=== PATIENT | female | born 1970 | race Asian ===

== ENCOUNTER 2019-12-08 23:02 | Emergency (ER) | payer MEDICAID, OTHER ==
[~2019-12-08] VITALS: Ht 162.6 cm; Wt 67.3 kg
[2019-12-08] MEDS ORDERED: IBUP100O27 PO (23:27)
[2019-12-08] MEDS ORDERED: ASPI-556 PO (23:27)
[2019-12-08 23:28] LABS: GLUCOSE,POINT OF CARE 222 MG/DL (70-110)
[2019-12-08] MEDS ORDERED: METF-960 PO (23:29)
[2019-12-08] MEDS ORDERED: OMEP20 PO (23:29)
[2019-12-09 00:58] LABS: BASOPHILS % (AUTO) 0.5 % (0.0-2.0); EOSINOPHILS % (AUTO) 1.1 % (1.0-6.0); HEMATOCRIT 35.6 % (36-46); HEMOGLOBIN 11.9 g/dL (12.0-16.0); LYMPHOCYTES # (AUTO) 1.9 K/uL (1.0-4.8); LYMPHOCYTES % (AUTO) 18.4 % (22.0-44.0); MEAN CORPUSCULAR HEMOGLOBIN 28.6 pg (26.0-34.0); MEAN CORPUSCULAR HGB CONC 33.4 G/dL (31.0-37.0); MEAN CORPUSCULAR VOLUME 86 fL (80-100); MONOCYTES # (AUTO) 0.8 K/uL (0.1-1.0); MONOCYTES % (AUTO) 7.5 % (2.0-9.0); NEUTROPHILS # (AUTO) 7.4 K/uL (1.8-7.7); NEUTROPHILS % (AUTO) 72.5 % (40.0-70.0); PLATELET COUNT (AUTO) 331 K/uL (150-450); RED BLOOD CELL COUNT(AUTO) 4.16 MIL/uL (4.00-5.20); RED CELL DISTRIBUTION WIDTH 12.5 % (11.5-14.5)
[2019-12-09 01:11] LABS: ANION GAP 5 mmol/L (8-16); CARBON DIOXIDE 30 mmol/L (22-29); CHLORIDE 103 mmol/L (98-107); CREATININE 0.58 mg/dL (0.60-1.30); GLOMERULAR FILTR. RATE CALC > 60 mL/min (>60); GLUCOSE,RANDOM 159 mg/dL (70-110); POTASSIUM 4.1 mmol/L (3.5-5.1); SODIUM SERUM 138 mmol/L (136-145); UREA NITROGEN, BLOOD 7 mg/dL (7-18)
[2019-12-09 01:12] LABS: APPEARANCE,URINE CLEAR (CLEAR); BILIRUBIN,URINE NEGATIVE (NEGATIVE); GLUCOSE, URINE (UA) 100 mg/dL (NEGATIVE); KETONES,URINE NEGATIVE (NEGATIVE); LEUKOCYTE ESTERASE ,URINE NEGATIVE (NEGATIVE); NITRATE,URINE NEGATIVE (NEGATIVE); OCCULT BLOOD,URINE TRACE (NEGATIVE); PH,URINE 5.5 (5.0-8.0); PROTEIN,URINE NEGATIVE (NEGATIVE); UROBILINOGEN,URINE 0.2 mg/dL (<=1.0)
[2019-12-09 01:23] LABS: ALANINE AMINOTRANSFERASE 22 U/L (12-78); ALBUMIN 3.8 g/dL (3.4-5.0); ALKALINE PHOSPHATASE 62 U/L (46-116); ASPARTATE AMINOTRANSFERASE 14 U/L (15-37); BILIRUBIN,TOTAL 0.5 mg/dL (0.1-1.0); HCG,QUANTITATIVE 1 mIU/mL (0-6); LIPASE 227 U/L (73-393); TOTAL PROTEIN, SERUM 8.3 g/dL (6.4-8.2)
[2019-12-09 01:38] LABS: BACTERIA,URINE None Seen /HPF (None Seen); RBC,URINE 0-2 /HPF (0-2); WBC,URINE None Seen /HPF (0-5)
[2019-12-09 01:39] LABS: SQUAMOUS EPITHELIAL CELL,UR None Seen /LPF (None Seen)
[2019-12-09] MEDS ORDERED: IOVERSOL 350 MG/ML 100 ML VIAL ONE ×2 (01:42→02:26)
[2019-12-09] MEDS ORDERED: SODIUM CHLORIDE 0.9% 100 ML ONE ×2 (01:42→02:26)
[2019-12-09] MEDS ORDERED: MetroNIDAZOLE 250 MG TABLET PO ONE (03:30)
[2019-12-09] MEDS ORDERED: CIPROFLOXACIN HCL 250 MG TABLET PO ONE (03:30)
[2019-12-09 03:52] VITALS: BP 142/64
== END 2019-12-09 04:12 | disposition home or self-care (01) ==
LOC: EMS 23:03
DX: K57.92 Diverticulitis of intestine, part unspecified, without perforation or abscess without bleeding (principal); E11.9 Type 2 diabetes mellitus without complications; I10 Essential (primary) hypertension; Z79.82 Long term (current) use of aspirin; Z79.84 Long term (current) use of oral hypoglycemic drugs
CPT/HCPCS: 36415; 74177; 76705; 80053; 81001; 82962; 83690; 84702; 85025; 99285; J7050; Q9967